=== PATIENT | female | born 1995 | race Caucasian/White ===

== ENCOUNTER 2018-08-27 16:49 | Inpatient (IN) ==
[2018-08-27] MEDS ORDERED: DEXTROSE 5%-LACTATED RINGERS 1,000 ML IV PRN (19:41)
[2018-08-27] MEDS ORDERED: RINGER'S SOLUTION,LACTATED 1,000 ML IV ONE (19:41)
[2018-08-27] MEDS ORDERED: OXYTOCIN/DEXTROSE 5%-WATER 30 UNITS/500 ML BAG IV ONE (19:41)
--- NOTE | 2018-08-27 20:04 | HP ---
Chief Complaint - Chief Complaint Date of Service: 08/27/18 Time of Service: 19:49 Chief Complaint: contractions History of Present Illness: 22 yo at 38 3/7wks presents to L&D complaining of contractions q 2-3 min that she can't walk or talk through. Medical History (Last Reviewed 08/27/18 @ 19:51 by Robert Garcia DO) Depression (Chronic) GERD (gastroesophageal reflux disease) Onset Date: Unknown Migraine Onset Date: Unknown Head lice Onset Date: Unknown Gastroenteritis Onset Date: Unknown Lymphadenitis Onset Date: Unknown right cheek Pharyngitis Onset Date: Unknown Seizure Onset Date: ~2014 last seizure 2015 -triggered by migraines Spontaneous Onset Date: Unknown x 2 Strep throat Onset Date: Unknown Syncope, vasovagal Onset Date: 07/28/11 Tonsillitis Onset Date: Unknown URI (upper respiratory infection) Onset Date: Unknown Viral syndrome Onset Date: Unknown [place] teeth extracted Onset Date: 06/30/10 Wrist fracture Onset Date: ~2005 Buckle fracture of distal radial metaphysis Surgical History: Surgical History (Last Reviewed 08/23/18 @ 19:59 by Robert Garcia DO) Enlarged lymph node Onset Date: ~09/2006 removal of buccal lymph node from right cheek Family History: Family History (Last Reviewed 08/23/18 @ 20:00 by Robert Garcia DO) Grandmother Breast cancer maternal Heart disease Grandfather Diabetes maternal Heart disease Hypertension Father Migraines Seizures triggered by migraines Social History: Preferred Language Kazakh Smoking Status Former smoker Psych History No pertinent hx (Last Updated 08/27/18 @ 12:08 by Robert Garcia DO) No Social History Section defined Review Of Systems (GEN) - Review of Systems Generalized/Overall Review: Present: No Symptoms Reported EENTM: Present: No Symptoms Reported Respiratory: Present: No Symptoms Reported Cardiac: Present: No Symptoms Reported Abdominal: Present: Other - contraction pain Genitourinary: Present: No Symptoms Reported Musculoskeletal: Present: No Symptoms Reported Neurological: Present: No Symptoms Reported Skin: Present: No Symptoms Reported Endocrine: Present: No Symptoms Reported Immunizations: IMMUNIZATION HX Immunizations Up to Date Yes History of Influenza Vaccine Yes Allergies/Adverse Reactions: Allergies Allergy/AdvReac Type Severity Reaction Status Date / Time procaine Allergy Severe Swelling Verified 08/27/18 11:16 of Throat diphenhydramine HCl AdvReac Mild Verified 08/27/18 11:16 [From Benadryl] Home Medications: HOME MEDICATIONS [id number]/FA/Omega3/Dha/Fish Oil [ Gummies] 1 ea PO DAILY 02/20/18 [Last Taken 08/26/18 21:00] escitalopram 10 mg tablet 10 mg PO DAILY #30 tab 07/17/18 [Last Taken 08/26/18 21:00] Exam - Exam Vital Signs: Vital Signs - Last Taken Temp 36.9 C 08/27/18 19:48 Pulse 79 08/27/18 19:48 Resp 18 08/27/18 19:48 BP 129/70 08/27/18 19:48 Pulse Ox 98 08/27/18 19:48 Constitutional: Present: Alert, Oriented x3, Cooperative ENT Exam: Present: hearing grossly normal Breasts: Present: Exam deferred Respiratory: Present: lungs clear, no respiratory distress Cardiovascular/Chest: Present: normal peripheral pulses, regular rate, rhythm Abdomen: Present: soft, nontender, no rebound tenderness, other - gravid /Rectal: Present: Other - 4-5/80/-2 Extremity: Present: non-tender, no pedal edema, no calf tenderness Skin Exam: Present: normal color, warm/dry, no cyanosis Neurologic: Present: alert, normal mood/affect, oriented x 3 Appearance: Present: appropriate appearance, appropriate insight Eye contact: Present: cooperative, good eye contact, normal speech Thoughts: Present: normal thought pattern Assessment/Plan - Assessment/Plan (1) Labor established Assessment: Admit for routine management of labor. Epidural and pitocin PRN. Problem: Acute
[2018-08-27] MEDS ORDERED: BUPIVACAINE HCL/0.9 % NACL/PF 250 ML EP PRN (20:17)
[2018-08-27] MEDS ORDERED: ONDANSETRON HCL/PF 2 MG/ML VIAL IV PRN (20:17)
[2018-08-27] MEDS ORDERED: NALOXONE HCL 1 MG/1 ML SYRG IV PRN (20:17)
[2018-08-27] MEDS ORDERED: fentaNYL CITRATE/PF 50 MCG/ML AMPUL IT SCH (20:30)
--- NOTE | 2018-08-27 21:07 | ANES ---
Anesthesia Pre Procedure Eval Vitals/Labs: Last Vital Signs Temp 36.4 C 08/27/18 21:00 Pulse 77 08/27/18 21:00 Resp 18 08/27/18 21:00 BP 135/67 08/27/18 21:00 Pulse Ox 99 08/27/18 21:00 HOME MEDICATIONS [id number]/FA/Omega3/Dha/Fish Oil [ Gummies] 1 ea PO DAILY 02/20/18 [Last Taken 08/26/18 21:00] escitalopram 10 mg tablet 10 mg PO DAILY #30 tab 07/17/18 [Last Taken 08/26/18 21:00] Allergies/Adverse Reactions: Allergies Allergy/AdvReac Type Severity Reaction Status Date / Time procaine Allergy Severe Swelling Verified 08/27/18 11:16 of Throat diphenhydramine HCl AdvReac Mild Verified 08/27/18 11:16 [From Benadryl] - Planned Procedure Planned Procedure: LABOR Medication List Reviewed:: Yes Allergies Verified: Yes Medical History (Last Reviewed 08/27/18 @ 21:06 by David Contreras CRNA) Depression (Chronic) GERD (gastroesophageal reflux disease) Onset Date: Unknown Migraine Onset Date: Unknown Head lice Onset Date: Unknown Gastroenteritis Onset Date: Unknown Lymphadenitis Onset Date: Unknown right cheek Pharyngitis Onset Date: Unknown Seizure Onset Date: ~2014 last seizure 2015 -triggered by migraines Spontaneous Onset Date: Unknown x 2 Strep throat Onset Date: Unknown Syncope, vasovagal Onset Date: 07/28/11 Tonsillitis Onset Date: Unknown URI (upper respiratory infection) Onset Date: Unknown Viral syndrome Onset Date: Unknown [place] teeth extracted Onset Date: 06/30/10 Wrist fracture Onset Date: ~2005 Buckle fracture of distal radial metaphysis Surgical History (Last Reviewed 08/27/18 @ 21:06 by David Contreras CRNA) Enlarged lymph node Onset Date: ~09/2006 removal of buccal lymph node from right cheek Family History (Last Reviewed 08/27/18 @ 21:06 by David Contreras CRNA) Grandmother Breast cancer maternal Heart disease Grandfather Diabetes maternal Heart disease Hypertension Father Migraines Seizures triggered by migraines - Family Anesthesia History Family History:: no untoward family reactions to anesthesia - Airway/Neck/Teeth Within Normal Limits:: Yes Teeth Condition: Intact Denture Type: None Neck Exam: full range of motion, normal inspection Mallampatti Score: 2 Thyromental (T-M) distance: > 6 cm Mandibulo Hyoid distance: > 3 cm - Respiratory Respiratory: lungs clear, normal breath sounds Smoking Status: Never smoker Sleep Apnea currently treated: No Sleep Apnea by current assessment: No - Cardiovascular Patient History - Cardiac/Respiratory: No pertinent hx Tolerates Activity: Good Heart Sounds: S1 & S2, Regular - Anesthesia Assessment and Plan ASA Class: PS, II, E Anesthesia Type Plan: Epidural
--- NOTE | 2018-08-27 21:08 | ANES ---
Post Anesthesia Discharge - Transfer of Care Transfer of Care handoff given to nurse: Yes - Anesthesia Post Op Note Anesthesia Post Op Note: care transferred to OB RN after epidural placement
--- NOTE | 2018-08-27 21:08 | ANES ---
Post Anesthesia Assessment - Vital Signs Vitals: Last Vital Signs Temp 36.4 C 08/27/18 21:00 Pulse 77 08/27/18 21:00 Resp 18 08/27/18 21:00 BP 135/67 08/27/18 21:00 Pulse Ox 99 08/27/18 21:00 Airway Patency: Normal - Mental Status Level Of Consciousness: Awake - Pain Level Pain Score: 2 - N/V Assessment Nausea/Vomiting Presence: None Dehydration:: No
--- NOTE | 2018-08-27 21:11 | ANES ---
Anesthesia Procedure Note Procedure Note: ANESTHESIA PROCEDURE NOTE Date of Procedure: [] 08/27/2018 Time of procedure:[]. 20:50 Performed by: Baljeet Contreras CRNA Recreation Instructor: None. Preprocedure diagnosis: Active labor. Post procedure diagnosis: Same. Procedure: Insertion of labor epidural. Indications: The patient is a [22] -year-old [prima para] female in active labor requesting labor epidural for pain management. Findings: See below. Details of the procedure: The patient was placed in a sitting position. Back was prepped with DuraPrep. Patient was then draped in a sterile fashion. Lidocaine 1% was infiltrated to the skin and subcutaneous tissues at the level of the L3 4 interspace. The epidural space was identified using a 18-gauge Tuohy needle with [id number] technique. 20 mcg fentanyl was given intrathecally using a 27 ga. spinal needle. Epidural catheter was inserted without difficulty. Negative test dose was elicited using 5 mL of 1.5% preservative-free lidocaine plus epinephrine 1 200,000. The epidural catheter was then taped and secured in place. EBL: Minimal. Fluids: N/A. Specimen: N/A. Post procedure condition: The patient tolerated the procedure well. No complications were noted. Thank you for this consultation. Clemente CRNA
[2018-08-28] MEDS ORDERED: LIDOCAINE HCL 50 ML VIAL IJ PRN (02:50)
[2018-08-28] MEDS ORDERED: LIDOCAINE HCL 50 ML VIAL ONE (02:51)
--- NOTE | 2018-08-28 03:18 | OR ---
Operative Report - Dictated Report Narrative: Spontaneous vaginal delivery of viable male at 0243 on 08/28/2018 with Apgars 9 and 9, weighing 3936 g in MICHAEL position. Cord clamping delayed approximately 1 minute Placenta delivered complete, intact, with three vessel cord Estimated blood loss: less than 50 ml Anesthesia: Epidural and 1% lidocaine local Lacerations: Second-degree vaginal laceration repaired with 3-0 Vicryl Rapide History for MU Definition: * The number of deliveries resulting in a live the patient experienced prior to current hospitalization * The previous delivery of live twins or any live multiple gestation is considered one live event. *If primagravida or nulliparous is documented select zero for the number of previous live births. Live Events: 0
[2018-08-28] MEDS ORDERED: oxyCODONE HCL/ACETAMINOPHEN 1 TAB TABLET PO PRN (03:30)
[2018-08-28] MEDS ORDERED: GLYCERIN/WITCH HAZEL LEAF 40 APPL BOX TP PRN (03:30)
[2018-08-28] MEDS ORDERED: BISACODYL 10 MG SUPP.RECT RC PRN (03:30)
[2018-08-28] MEDS ORDERED: SENNOSIDES 8.6 MG TABLET PO PRN (03:30)
[2018-08-28] MEDS ORDERED: OXYTOCIN/DEXTROSE 5%-WATER 30 UNITS/500 ML BAG IV ONE (03:30)
[2018-08-28] MEDS ORDERED: HYDROCORTISONE 30 APPL TUBE TP PRN (03:30)
[2018-08-28] MEDS ORDERED: BENZOCAINE/MENTHOL 81 SPRAY CAN TP PRN (03:30)
[2018-08-28] MEDS: oxyCODONE HCL/ACETAMINOPHEN 1 TAB TABLET PO PRN ×4 (04:26→23:22)
[2018-08-28] MEDS: IBUPROFEN 800 MG TABLET PO PRN ×3 (04:26→18:28)
[2018-08-28] MEDS: DOCUSATE SODIUM 100 MG CAPSULE PO SCH ×2 (08:55→23:02)
[2018-08-28] MEDS: ESCITALOPRAM OXALATE 10 MG TAB PO SCH (08:55)
[2018-08-28] MEDS: PRENATAL VITS96/IRON FUM/FOLIC 1 TAB TABLET PO SCH (08:55)
[2018-08-29] MEDS: IBUPROFEN 800 MG TABLET PO PRN ×3 (04:27→18:13)
[2018-08-29] MEDS: oxyCODONE HCL/ACETAMINOPHEN 1 TAB TABLET PO PRN (04:28)
[2018-08-29] MEDS: DOCUSATE SODIUM 100 MG CAPSULE PO SCH ×2 (09:06→21:20)
[2018-08-29] MEDS: PRENATAL VITS96/IRON FUM/FOLIC 1 TAB TABLET PO SCH (09:12)
[2018-08-29] MEDS: ESCITALOPRAM OXALATE 10 MG TAB PO SCH (09:12)
--- NOTE | 2018-08-29 20:52 | PN ---
Subjective - Date and Time Seen Date: 08/29/18 Time: 20:51 Objective - Vitals Vitals: Last Vital Signs Temp 36.8 C 08/29/18 19:52 Pulse 62 08/29/18 19:52 Resp 16 08/29/18 19:52 BP 137/63 08/29/18 19:52 Pulse Ox 98 08/29/18 19:52 Patient denies complaints. Breast-feeding without difficulty Lochia wnl Abdomen - soft, nontender Uterus - firm, at umbilicus - 1 No calf tenderness Impression: day #1 - s/p spontaneous vaginal delivery. Plan: Continue routine care Cauti Physician Documentation - Urinary Catheter Management Urethral (Vázquez) Date of Insertion: 08/27/18 Time of Insertion: 21:45 Assessment/Plan - Problems/Diagnosis (1) Labor established Problem: Acute
[2018-08-30] MEDS: IBUPROFEN 800 MG TABLET PO PRN ×2 (03:25→09:45)
[2018-08-30] MEDS: oxyCODONE HCL/ACETAMINOPHEN 1 TAB TABLET PO PRN (03:26)
[2018-08-30 08:07] VITALS: BP 119/59
[2018-08-30] MEDS: DOCUSATE SODIUM 100 MG CAPSULE PO SCH (09:08)
[2018-08-30] MEDS: ESCITALOPRAM OXALATE 10 MG TAB PO SCH (09:08)
[2018-08-30] MEDS: PRENATAL VITS96/IRON FUM/FOLIC 1 TAB TABLET PO SCH (09:08)
--- NOTE | 2018-08-30 10:38 | PN ---
Subjective - Date and Time Seen Date: 08/30/18 Time: 10:38 Objective - Vitals Vitals: Last Vital Signs Temp 36.9 C 08/30/18 08:06 Pulse 71 08/30/18 08:06 Resp 17 08/30/18 08:06 BP 119/59 08/30/18 08:06 Pulse Ox 98 08/30/18 08:06 Patient denies complaints. Lochia wnl Abdomen - soft, nontender Uterus - firm, at umbilicus - 2 No calf tenderness Impression: day #2 - s/p spontaneous vaginal delivery. Plan: Routine discharge instructions Cauti Physician Documentation - Urinary Catheter Management Urethral (Vázquez) Date of Insertion: 08/27/18 Time of Insertion: 21:45 Assessment/Plan - Problems/Diagnosis (1) Labor established Problem: Acute
== END 2018-08-30 11:50 | disposition home or self-care (01) | DRG 806 ==
LOC: OBCLINIC 16:49 → OB 19:17
PROVIDERS: ADMIT Obstetrics & Gynecology; ATTEND Obstetrics & Gynecology
CPT/HCPCS: 59025

== ENCOUNTER 2019-12-10 10:27 | Inpatient (IN) ==
[2019-12-10] MEDS ORDERED: OXYTOCIN/DEXTROSE 5%-WATER 30 UNITS/500 ML BAG IV ONE ×2 (11:32→16:51)
[2019-12-10] MEDS ORDERED: ONDANSETRON 4 MG TAB.RAPDIS PO PRN (11:32)
[2019-12-10] MEDS ORDERED: RINGER'S SOLUTION,LACTATED 1,000 ML IV ONE (11:32)
[2019-12-10] MEDS ORDERED: PENICILLIN G POTASSIUM 5 MILLIONUNT in DEXTROSE 5 % IN WATER 100 ML IV ONE ×2 (11:35)
[2019-12-10 12:06] LABS: Cocaine Ur Negative (NEGATIVE); Urine Barbiturate Negative (NEGATIVE); Urine Benzodiazepines Negative (NEGATIVE); Urine Opiates Negative (NEGATIVE); Urine PCP Negative (NEGATIVE); Urine THC Negative (NEGATIVE)
--- NOTE | 2019-12-10 13:32 | HP ---
Chief Complaint - Chief Complaint Date of Service: 12/10/19 Time of Service: 13:31 Chief Complaint: contractions History of Present Illness: 23 yo at 37 4/7 weeks presents to office complaining of painful frequent contractions. This complicated by morbid obesity and history of depression. Rh positive Rubella immune GBS pending Medical History (Last Reviewed 12/10/19 @ 16:57 by Robert Garcia DO) Depression (Chronic) GERD (gastroesophageal reflux disease) Onset Date: Unknown Migraine Onset Date: Unknown Obesity Onset Date: Unknown Head lice Onset Date: Unknown Gastroenteritis Onset Date: Unknown Lymphadenitis Onset Date: Unknown right cheek Pharyngitis Onset Date: Unknown Seizure Onset Date: ~2014 last seizure 2015 -triggered by migraines Spontaneous Onset Date: Unknown x 2 Strep throat Onset Date: Unknown Syncope, vasovagal Onset Date: 07/28/11 Tonsillitis Onset Date: Unknown URI (upper respiratory infection) Onset Date: Unknown Viral syndrome Onset Date: Unknown Wrist fracture Onset Date: ~2005 Buckle fracture of distal radial metaphysis Surgical History: Surgical History (Last Reviewed 12/10/19 @ 16:57 by Robert Garcia DO) Enlarged lymph node Onset Date: ~09/2006 removal of buccal lymph node from right cheek [place] teeth extracted Onset Date: 06/30/10 Family History: Family History (Last Reviewed 12/10/19 @ 16:57 by Robert Garcia DO) Grandmother Breast cancer maternal Heart disease Grandfather Diabetes maternal Heart disease Hypertension Father Migraines Seizures triggered by migraines Social History: (Last Reviewed 12/10/19 @ 16:57 by Robert Garcia DO) Social History: adopted: No penitentiary: No Marital status: Single household members: significant other, children number of children: 1 current occupational status: employed, unemployed current occupational exposures/hazards: No Highest education level completed: high school graduate Sexually Active: Yes Service: No Tobacco: Smoking Status: Former smoker Tobacco: How many years used: 4 Alcohol: alcohol intake: current alcohol intake frequency: a few times a month details: No alcohol since + UPT Substance Use: substance use type: does not use Dietary Habits: caffeine: No Exercise: frequency: other Moderate/strenuous exercise - min/day: active but no formal exercise Thao/Advent: agree to transfusion: Yes Review Of Systems (GEN) - Review of Systems Generalized/Overall Review: Present: No Symptoms Reported EENTM: Present: No Symptoms Reported Respiratory: Present: No Symptoms Reported Cardiac: Present: No Symptoms Reported Abdominal: Present: Other - contractions Genitourinary: Present: No Symptoms Reported Musculoskeletal: Present: No Symptoms Reported Neurological: Present: No Symptoms Reported Skin: Present: No Symptoms Reported Endocrine: Present: No Symptoms Reported Immunizations: IMMUNIZATION HX Immunizations Up to Date Yes History of Influenza Vaccine Yes Hx Pneumococcal Vaccination No Allergies/Adverse Reactions: Allergies Allergy/AdvReac Type Severity Reaction Status Date / Time procaine Allergy Severe Swelling Verified 12/10/19 10:57 of Throat diphenhydramine HCl AdvReac Mild Verified 12/10/19 10:57 [From Benadryl] Home Medications: HOME MEDICATIONS Vits96/Iron Fum/Folic [ S] 1 tab PO DAILY #90 tab 08/28/18 [Last Taken Unknown] acetaminophen 500 mg tablet 500 mg PO Q6H PRN 05/23/19 [Last Taken Unknown] Exam - Exam Vital Signs: Vital Signs - Last Taken Temp 36.7 C 12/10/19 10:45 Pulse 78 12/10/19 10:45 Resp 16 12/10/19 10:45 BP 147/84 H 12/10/19 10:45 Pulse Ox 98 12/10/19 10:45 Constitutional: Present: Alert, Oriented x3, Cooperative, Mild distress - from contraction pain ENT Exam: Present: hearing grossly normal Neck: Present: non-tender. Absent: thyromegaly Breasts: Present: Exam deferred Respiratory: Present: lungs clear, no respiratory distress Cardiovascular/Chest: Present: normal peripheral pulses, regular rate, rhythm Abdomen: Present: soft, nontender, no rebound tenderness, other - gravid /Rectal: Present: Other - cervix 4/70/-2 Extremity: Present: no pedal edema, no calf tenderness Skin Exam: Present: normal color, warm/dry, no cyanosis Lymphatic: Present: no adenopathy Neurologic: Present: alert, normal mood/affect, oriented x 3 Appearance: Present: appropriate appearance, appropriate insight Eye contact: Present: cooperative, good eye contact Thoughts: Present: normal thought pattern, normal mood /affect Diagnostic Studies: Laboratory Results Urine Opiates Screen Negative (NEGATIVE) 12/10/19 11:30 Barbiturate Screen Negative (NEGATIVE) 12/10/19 11:30 Ur Phencyclidine Scrn Negative (NEGATIVE) 12/10/19 11:30 Urine Amphetamine Negative (NEGATIVE) 12/10/19 11:30 U Benzodiazepines Scrn Negative (NEGATIVE) 12/10/19 11:30 Urine Cocaine Screen Negative (NEGATIVE) 12/10/19 11:30 Urine Marijuana (THC) Negative (NEGATIVE) 12/10/19 11:30 NST reactive. Assessment/Plan - Assessment/Plan (1) Labor established Assessment: Admit for labor. Epidural PRN. GBS prophylaxis since culture results not available. Problem: Acute (2) Morbid obesity Problem: Acute Non Stress Test - Status NST: 12/10/19 Reason for NST: threatened labor Monitor Mode: External Acceleration: Present Decelerations: None Variability: Moderate 6-25 bpm Baseline Heart Rate: 140 Activity: reactive - Assessment NST Assessment: other - Labor - Plan NST Plan: Admit to L&D
--- NOTE | 2019-12-10 13:35 | PN ---
Progess Note - Interim Date: 12/10/19 Time: 13:32 Narrative: 12/10/19 13:32 Patient becoming more uncomfortable with contractions Vital signs stable. Status post penicillin 5,000,000 units IV x1 FHT: 140 baseline, reassuring contractions q 2-3 min Cervix: 6/70/-2, AROM-clear Impression: Intrauterine at 37-3/7 weeks in labor. GBS results pending-on penicillin for GBS prophylaxis. Plan: Continue present plan. Internal monitoring placed due to difficulty in assessing baby and contractions.
[2019-12-10] MEDS ORDERED: BUPIVACAINE HCL/0.9 % NACL/PF 250 ML EP PRN (13:44)
[2019-12-10] MEDS ORDERED: ONDANSETRON HCL/PF 2 MG/ML VIAL IV PRN (13:44)
[2019-12-10] MEDS ORDERED: NALOXONE HCL 1 MG/1 ML SYRG IV PRN (13:44)
[2019-12-10] MEDS ORDERED: fentaNYL CITRATE/PF 50 MCG/ML AMPUL IT SCH (13:45)
--- NOTE | 2019-12-10 13:55 | ANES ---
Anesthesia Pre Procedure Eval Vitals/Labs: Last Vital Signs Temp 36.7 C 12/10/19 10:45 Pulse 78 12/10/19 10:45 Resp 16 12/10/19 10:45 BP 147/84 H 12/10/19 10:45 Pulse Ox 98 12/10/19 10:45 HOME MEDICATIONS Vits96/Iron Fum/Folic [ S] 1 tab PO DAILY #90 tab 08/28/18 [Last Taken Unknown] acetaminophen 500 mg tablet 500 mg PO Q6H PRN 05/23/19 [Last Taken Unknown] Allergies/Adverse Reactions: Allergies Allergy/AdvReac Type Severity Reaction Status Date / Time procaine Allergy Severe Swelling Verified 12/10/19 10:57 of Throat diphenhydramine HCl AdvReac Mild Verified 12/10/19 10:57 [From Benadryl] - Planned Procedure Planned Procedure: active labor 37 weeks 4 days Medication List Reviewed:: Yes Allergies Verified: Yes Medical History (Last Reviewed 12/10/19 @ 13:54 by Bipin Villegas CRNA) Depression (Chronic) GERD (gastroesophageal reflux disease) Onset Date: Unknown Migraine Onset Date: Unknown Obesity Onset Date: Unknown Head lice Onset Date: Unknown Gastroenteritis Onset Date: Unknown Lymphadenitis Onset Date: Unknown right cheek Pharyngitis Onset Date: Unknown Seizure Onset Date: ~2014 last seizure 2014 -triggered by migraines Spontaneous Onset Date: Unknown x 2 Strep throat Onset Date: Unknown Syncope, vasovagal Onset Date: 07/28/11 Tonsillitis Onset Date: Unknown URI (upper respiratory infection) Onset Date: Unknown Viral syndrome Onset Date: Unknown Wrist fracture Onset Date: ~2005 Buckle fracture of distal radial metaphysis Surgical History (Last Reviewed 12/10/19 @ 13:54 by Bipin Villegas CRNA) Enlarged lymph node Onset Date: ~09/2006 removal of buccal lymph node from right cheek [place] teeth extracted Onset Date: 06/30/10 Family History (Last Reviewed 12/10/19 @ 13:54 by Bipin Villegas CRNA) Grandmother Breast cancer maternal Heart disease Grandfather Diabetes maternal Heart disease Hypertension Father Migraines Seizures triggered by migraines - Family Anesthesia History Family History:: no untoward family reactions to anesthesia, no familial bleeding tendencies, no family history of clotting disorders, no family history of premature - Airway/Neck/Teeth Within Normal Limits:: Yes Teeth Condition: intact Neck Exam: full range of motion Mallampatti Score: 2 Thyromental (T-M) distance: > 6 cm Mandibulo Hyoid distance: > 3 cm - Respiratory Respiratory Physical: lungs clear Sleep Apnea currently treated: No Sleep Apnea by current assessment: No - Cardiovascular Tolerate Activity: Fair Heart Sounds: S1 & S2, Regular - Gastrointestinal NPO since: This am - Anesthesia Assessment and Plan ASA Class: PS, II Anesthesia Type Plan: Epidural - CSE for labor analgesia
--- NOTE | 2019-12-10 14:18 | ANES ---
Post Anesthesia Discharge - Transfer of Care Transfer of Care handoff given to nurse: Yes - Discharge from PACU Discharge from PACU when meets criteria: Yes - More comfortable post CSE
--- NOTE | 2019-12-10 14:20 | ANES ---
Anesthesia Procedure Note Procedure Note: ANESTHESIA PROCEDURE NOTE Date of Procedure: [12/10/2019 Time of procedure: 1355. Performed by: GÓMEZ Sheth CRNA, MSN Tugboat Captain: Haley Hernández RN. Preprocedure diagnosis: Active labor, labor pain. Post procedure diagnosis: Same. Procedure:Epidural for labor analgesia L3-4. Indications: Labor pain. Findings: See below. Details of the procedure: The patient was placed on the side of the bed in sitting positionand prepped with DuraPrep then draped in a sterile fashion. Lidocaine 1% was infiltrated to the skin and subcutaneous tissues at the level of the L3-4 interspace. An 18-gauge Touhy needle was used to approach the epidural space with loss of resistance technique. Once loss of resistance was achieved a 27-gauge spinal needle was passed through the epidural needle and CSF was contacted. After CSF returned, 20 mcg of fentanyl was injected in the spinal needle was removed the epidural catheter was then threaded approximately 4 cm in the epidural needle was removed. The catheter was taped in place and after careful aspiration 3 mL of 1.5% lidocaine with 1-200,000 epinephrine was injected without change in maternal heart rate or sensorium. . EBL: Minimal. Fluids: N/A. Specimen: N/A. Post procedure condition: The patient tolerated the procedure well with good relief. No complications were noted. Thank you for this consultation. Bipin Villegas CRNA, GÓMEZ, MSN
--- NOTE | 2019-12-10 14:29 | ANES ---
Post Anesthesia Assessment - Vital Signs Vitals: Last Vital Signs Temp 36.7 C 12/10/19 10:45 Pulse 78 12/10/19 10:45 Resp 16 12/10/19 10:45 BP 147/84 H 12/10/19 10:45 Pulse Ox 98 12/10/19 10:45 Airway Patency: Normal - Mental Status Level Of Consciousness: Awake, Alert, Appropriate - Pain Level Pain Score: 3 - N/V Assessment Nausea/Vomiting Presence: None Dehydration:: No
[2019-12-10] MEDS ORDERED: DEXTROSE 5%-LACTATED RINGERS 1,000 ML IV PRN (15:31)
[2019-12-10] MEDS ORDERED: PENICILLIN G POTASSIUM 2.5 MILLIONUNT in DEXTROSE 5 % IN WATER 100 ML IV SCH ×2 (15:37)
[2019-12-10] MEDS ORDERED: HYDROCORTISONE 30 APPL TUBE TP PRN (16:51)
[2019-12-10] MEDS ORDERED: GLYCERIN/WITCH HAZEL LEAF 40 APPL BOX TP PRN (16:51)
[2019-12-10] MEDS ORDERED: BISACODYL 10 MG SUPP.RECT RC PRN (16:51)
[2019-12-10] MEDS ORDERED: SENNOSIDES 8.6 MG TABLET PO PRN (16:51)
--- NOTE | 2019-12-10 16:53 | OR ---
Operative Report - Dictated Report Narrative: Spontaneous vaginal delivery of vigorously crying viable female at 1617 on 12/10/2019 with Apgars 9 and 9, weighing 3750 g and MICHAEL position. Cord clamping delayed approximately 1 minute Placenta delivered complete, intact, with three vessel cord Estimated blood loss: 100 mL Anesthesia: Epidural Lacerations: Second-degree vaginal laceration (4 cm) repaired with 3-0 Vicryl Rapide.
--- NOTE | 2019-12-10 16:53 | PN ---
Progess Note - Interim Date: 12/10/19 Time: 16:53 History for MU History for MU Definition: * The number of deliveries resulting in a live the patient experienced prior to current hospitalization * The previous delivery of live twins or any live multiple gestation is considered one live event. *If primagravida or nulliparous is documented select zero for the number of previous live births. Live Events: Live Events: 1
[2019-12-10] MEDS: oxyCODONE HCL/ACETAMINOPHEN 1 TAB TABLET PO PRN (21:19)
[2019-12-10] MEDS: IBUPROFEN 800 MG TABLET PO PRN (23:40)
[2019-12-11] MEDS: DOCUSATE SODIUM 100 MG CAPSULE PO SCH ×2 (01:57→08:26)
[2019-12-11] MEDS: oxyCODONE HCL/ACETAMINOPHEN 1 TAB TABLET PO PRN ×3 (03:39→23:07)
[2019-12-11] MEDS: IBUPROFEN 800 MG TABLET PO PRN ×3 (08:26→23:07)
--- NOTE | 2019-12-11 11:18 | PN ---
Subjective - Date and Time Seen Date: 12/11/19 Time: 11:17 Objective - Vitals Vitals: Last Vital Signs Temp 36.2 C 12/11/19 07:11 Pulse 59 L 12/11/19 07:11 Resp 16 12/11/19 07:11 BP 135/81 12/11/19 07:11 Pulse Ox 97 12/11/19 07:11 Patient denies complaints. Lochia wnl abdomen - soft, nontender Uterus -firm, at umbilicus - 1 no calf tenderness Impression: day #1 - s/p spontaneous vaginal delivery. Baby with glucose problems - landscape contractor suspecting maternal diabetes. Plan: Continue routine care. Check mother's hemoglobin A1c Cauti Physician Documentation - Urinary Catheter Management Urethral (Vázquez) Date of Insertion: 12/10/19 Time of Insertion: 15:19 Date of Removal: 12/10/19 Time of Removal: 16:10 Assessment/Plan - Problems/Diagnosis (1) Labor established Problem: Acute (2) Morbid obesity Problem: Acute
[2019-12-11 11:40] LABS: Hemoglobin A1C 5.6 % (4.00-6.0)
[2019-12-12] MEDS: DOCUSATE SODIUM 100 MG CAPSULE PO SCH ×2 (01:07→09:33)
[2019-12-12] MEDS: IBUPROFEN 800 MG TABLET PO PRN ×3 (07:36→22:16)
--- NOTE | 2019-12-12 08:29 | PN ---
Subjective - Date and Time Seen Date: 12/12/19 Time: 08:28 Objective - Vitals Vitals: Last Vital Signs Temp 36.7 C 12/12/19 07:48 Pulse 76 12/12/19 07:48 Resp 18 12/12/19 07:48 BP 145/67 H 12/12/19 07:48 Pulse Ox 97 12/12/19 07:48 Patient complains of low back pain at the site of her epidural. She specifically denies headaches, visual changes, or epigastric pain. Lochia wnl abdomen - soft, nontender Uterus -firm, at umbilicus - 2 no calf tenderness Impression: day #2 - s/p spontaneous vaginal delivery. Plan: Routine discharge instructions. Preeclampsia precautions. Follow-up in the office in 1 week for blood pressure check. Cauti Physician Documentation - Urinary Catheter Management Urethral (Vázquez) Date of Insertion: 12/10/19 Time of Insertion: 15:19 Date of Removal: 12/10/19 Time of Removal: 16:10 Assessment/Plan - Problems/Diagnosis (1) Labor established Problem: Acute (2) Morbid obesity Problem: Acute
[2019-12-12 11:39] VITALS: BP 135/70
[2019-12-12] MEDS: oxyCODONE HCL/ACETAMINOPHEN 1 TAB TABLET PO PRN ×2 (15:25→22:16)
== END 2019-12-12 23:17 | disposition home or self-care (01) | DRG 807 ==
LOC: OB 10:27
PROVIDERS: ADMIT Obstetrics & Gynecology; ATTEND Obstetrics & Gynecology
CPT/HCPCS: 36415; 59025; 80307; 83036; J2405